=== PATIENT | male | born 1950 | race Two or more races ===

== ENCOUNTER → 2017-05-05 | Outpatient (CLI) | payer MEDICARE ==
--- NOTE | 2017-05-05 14:10 | RADRPT ---
PROCEDURE: Left knee radiographs. CLINICAL INDICATION: Left knee pain. TECHNIQUE: Three views. Weight bearing. Frontal, lateral, and patellar view. COMPARISON: No prior studies are available for comparison. FINDINGS: There is no fracture or dislocation. The soft tissues are normal. There are degenerative changes with osteophytes arising from all 3 joint compartment margins. There is lateral patellofemoral joint compartment narrowing. There is no lytic or blastic lesion. There is no radiopaque foreign body. IMPRESSION: 1. Moderate degenerative changes of the left knee. 2. No acute abnormality. RPTAT: QQ .Pankaj Mota MD, Date Time Electronically viewed and signed by .Pankaj Mota MD, on 05/05/2017 14:09 .R/
--- NOTE | 2017-05-05 19:32 | HKNOTE ---
DATE OF SERVICE: 05/05/2017 MAIN COMPLAINT: Left knee pain. HISTORY OF PRESENT ILLNESS: This is a 67-year-old male who states that he has had a 2-month history of left knee pain. He denies any history of trauma. The pain is on the inside of his left knee. He denies any locking, catching. He denies any instability. He has been using a knee sleeve for pain control. He does not use any assistive devices. He does not take any pain medications. Gait: Nonantalgic gait. No assistive devices. Left knee: Neutral alignment, tender over the medial joint line. Nontender over the lateral joint line. Stable to varus, valgus stress. Negative Shailesh's. Negative Rik's. Negative anterior drawer. Negative posterior drawer; 0-130 degrees range of motion. IMAGING: X-rays: Three views of the left knee demonstrate minimal medial joint space narrowing. There are no marginal osteophytes. There is no sclerosis. IMPRESSION: A 67-year-old male with improving left knee strain. PLAN: He was instructed to ice and elevate the left knee. He can take ibuprofen as needed. He will follow up with me as needed in the future. Dictated By: Johanna Fry MD /gino/murali /Document#: [id number]
== END | disposition home or self-care (01) ==
LOC: HKI 14:05
PROVIDERS: ATTEND Orthopaedic Surgery Adult Reconstructive Orthopaedic Surgery
DX: M25.562 Pain in left knee (principal); S83.92XA Sprain of unspecified site of left knee, initial encounter
CPT/HCPCS: 73562; G0463

== ENCOUNTER → 2017-06-18 | Outpatient (CLI) | payer MEDICARE ==
--- NOTE | 2017-06-18 19:50 | HKNOTE ---
DATE OF SERVICE: 06/18/2017 CHIEF COMPLAINT: Left knee pain. HISTORY OF PRESENT ILLNESS: This is a 67-year-old male with left knee pain. He states that his sameer n has been improving. He denies any locking, catching or instability. He does not use any assist d evices. He does not require any pain medications. He denies any groin or back pain. LEFT KNEE EXAMINATION: 0 to 120 degrees range of motion, stable to varus valgus stress. Negative L achman, negative anterior drawer, negative posterior drawer. Positive Shailesh's. Motor strength 5 /5 quadriceps, hamstrings, tibialis anterior, gastric soleus. IMAGING: MRI left knee: There is a complex tear of the posterior horn of the medial meniscus. The cruciate and collateral ligaments are intact. IMPRESSION: A 67-year-old male with left knee posterior horn medial meniscus tear. PLAN: Mr. Tapia is doing better with home exercises. I explained to him that at this time we can continue to monitor him. Should he have pain in the future, he will call for followup appointment. Dictated By: WINSOME RODRIGUES/EMILY Conf#: [id number] DID#: [id number]
== END | disposition home or self-care (01) ==
LOC: HKI 16:21
PROVIDERS: ATTEND Orthopaedic Surgery Adult Reconstructive Orthopaedic Surgery
DX: M23.222 Derangement of posterior horn of medial meniscus due to old tear or injury, left knee (principal)
CPT/HCPCS: G0463